=== PATIENT | male | born 1965 | race African-American/Black ===

== ENCOUNTER 2023-07-05 15:11 | Inpatient (IN) | payer OTHER ==
[2023-07-05 16:07] VITALS: BMI 33.2
[2023-07-05 16:54] LABS: BASO % 0.7 % (0-2.0); EOS % 0.3 % (0-4.5); HEMATOCRIT 47.5 % (35.4-49); HEMOGLOBIN 15.4 GM/dL (11.7-16.9); LYMPH % 23.3 % (8-40); MCH 26.7 pg (25.7-33.7); MCHC 32.4 g/dl (32.0-35.9); MEAN CELL VOLUME 82.3 fl (80-96); MEAN PLT VOLUME 9.2 fl (7.5-11.1); MONO % 8.7 % (3.8-10.2); PLATELET COUNT 184 10^3/uL (134-434); RBC 5.76 M/mm3 (4.00-5.60); RDW 14.5 % (11.9-15.9); WHITE BLOOD COUNT 8.7 K/mm3 (4.0-10.0)
[2023-07-05 16:58] LABS: VENOUS BASE EXCESS -10.5 mmol/L (-2-2); VENOUS O2 SATURATION 59.1 % (70-80); VENOUS PCO2 37.3 mmHg (38-52); VENOUS PH 7.248 (7.310-7.410)
[2023-07-05] MEDS: SODIUM CHLORIDE 0.9% 500 ML INFUS.BAG IV ONE (17:16)
[2023-07-05 17:18] LABS: CHLORIDE 95 mmol/L (98-107); POTASSIUM 4.9 mmol/L (3.5-5.1); SODIUM 131 mmol/L (136-145)
[2023-07-05 17:21] LABS: ALBUMIN 3.7 g/dl (3.4-5.0); ANION GAP 19 mmol/L (4-13); BLOOD UREA NITROGEN 30.5 mg/dL (7-18); CALCIUM 9.7 mg/dL (8.5-10.1); CO2 17 mmol/L (21-32); GLUCOSE,RANDOM 394 mg/dL (74-106)
[2023-07-05 17:24] LABS: SGOT/AST 20 U/L (15-37); SGPT/ALT 22 U/L (13-61)
[2023-07-05 17:25] LABS: BILIRUBIN,TOTAL 0.6 mg/dL (0.2-1)
[2023-07-05 17:27] LABS: ALK PHOS 109 U/L (45-117)
[2023-07-05] MEDS: SODIUM CHLORIDE 1,000 ML IV STA (18:05)
[2023-07-05 18:45] LABS: VENOUS O2 SATURATION 45.6 % (70-80); VENOUS PCO2 37.7 mmHg (38-52); VENOUS PH 7.235 (7.310-7.410)
[2023-07-05 18:48] LABS: EPI CELLS 1 /uL (0-25.1); HYALINE CASTS 1 /uL (0-3.1); PH,URINE 5.5 (5.0-8.0); URINE APPEARANCE CLEAR; URINE BACTERIA 2 /uL (0-1359); URINE BILIRUBIN NEGATIVE (NEGATIVE); URINE COLOR YELLOW; URINE GLUCOSE (UA) 3+ (NEGATIVE); URINE KETONE 4+ (NEGATIVE); URINE LEUK ESTERASE NEGATIVE (NEGATIVE); URINE NITRITE NEGATIVE (NEGATIVE); URINE PROTEIN 1+ (NEGATIVE); URINE RBC 9 /uL (0-23.9); URINE UROBILINOGEN 0.2 mg/dL (0.2-1.0); URINE WBC 3 /uL (0-25.8)
[2023-07-05 19:11] LABS: POTASSIUM 4.3 mmol/L (3.5-5.1)
[2023-07-05 19:12] LABS: CALCIUM 9.4 mg/dL (8.5-10.1)
[2023-07-05 19:13] LABS: BLOOD UREA NITROGEN 28.7 mg/dL (7-18)
[2023-07-05 19:16] LABS: CREATININE 2.1 mg/dL (0.55-1.3)
[2023-07-05] MEDS: LACTATED RINGERS SOLUTION 1,000 ML with POTASSIUM CHLORIDE 20 MEQ IV ONE (21:54)
[2023-07-05] MEDS: INSULIN REGULAR 100 UNITS in SODIUM CHLORIDE 99 ML IVPB SCH (21:54)
[2023-07-06 00:40] LABS: VENOUS BASE EXCESS -5.6 mmol/L (-2-2); VENOUS O2 SATURATION 35.8 % (70-80); VENOUS PCO2 45.4 mmHg (38-52); VENOUS PH 7.286 (7.310-7.410)
[2023-07-06 01:00] LABS: POTASSIUM 4.3 mmol/L (3.5-5.1)
[2023-07-06 01:02] LABS: BLOOD UREA NITROGEN 23.5 mg/dL (7-18)
[2023-07-06 01:06] LABS: CREATININE 1.8 mg/dL (0.55-1.3)
[2023-07-06] MEDS: DEXTROSE 5%-0.45% SALINE 1,000 ML IV SCH (01:17)
[2023-07-06] MEDS ORDERED: ACETAMINOPHEN 325 MG TABLET (FP) PO PRN ×3 (03:07→10:56)
[2023-07-06] MEDS ORDERED: ONDANSETRON 4 MG/2 ML VIAL IVPUSH PRN (03:10)
[2023-07-06] MEDS: SODIUM CHLORIDE 1,000 ML IV STA (04:18)
[2023-07-06] MEDS: INSULIN REGULAR 100 UNITS in SODIUM CHLORIDE 99 ML IVPB SCH ×2 (07:13→08:30)
[2023-07-06 08:45] LABS: POTASSIUM 3.6 mmol/L (3.5-5.1)
[2023-07-06 08:46] LABS: CALCIUM 8.5 mg/dL (8.5-10.1)
[2023-07-06 08:47] LABS: BLOOD UREA NITROGEN 20.1 mg/dL (7-18)
[2023-07-06 08:51] LABS: BILIRUBIN,TOTAL 0.5 mg/dL (0.2-1)
[2023-07-06 08:59] LABS: CREATININE 1.4 mg/dL (0.55-1.3)
[2023-07-06] MEDS ORDERED: SODIUM CHLORIDE 1,000 ML IV SCH (09:00)
[2023-07-06 09:04] LABS: TOT PROT 6.9 g/dl (6.4-8.2)
[2023-07-06] MEDS: INSULIN (LEVEMIR) 100 UNITS/ML UNITS SQ SCH (09:22)
[2023-07-06] MEDS: FAMOTIDINE 20 MG TABLET PO SCH (09:53)
[2023-07-06] MEDS: MUPIROCIN 2% TOPICAL OINTMENT FOR DECOLONIZATION NS SCH (09:53)
[2023-07-06] MEDS: HEPARIN NA (PORCINE) 5,000 UNITS/ML 1ML VIAL SQ SCH (09:53)
[2023-07-06] MEDS: DEXTROSE 5%-NORMAL SALINE 1,000 ML IV SCH (10:49)
[2023-07-06] MEDS ORDERED: INSULIN (NOVOLOG) ASPART 100 UNITS/ML 10ML VIAL ONE (10:57)
[2023-07-06] MEDS: INSULIN ASPART SLIDING SCALE (NOVOLOG) 1 VIAL SQ SCH (11:00)
[2023-07-06] MEDS: CHLORHEXIDINE GLUCONATE 4% CLEANSER FOR DECOLONIZATION TP SCH (21:05)
[2023-07-07 06:39] LABS: HEMATOCRIT 40.9 % (35.4-49); HEMOGLOBIN 13.5 GM/dL (11.7-16.9); MCH 26.6 pg (25.7-33.7); MCHC 32.9 g/dl (32.0-35.9); MEAN PLT VOLUME 9.1 fl (7.5-11.1); PLATELET COUNT 123 10^3/uL (134-434); RBC 5.05 M/mm3 (4.00-5.60); RDW 14.2 % (11.9-15.9); WHITE BLOOD COUNT 5.4 K/mm3 (4.0-10.0)
[2023-07-07 07:06] LABS: POTASSIUM 3.9 mmol/L (3.5-5.1)
[2023-07-07 07:11] LABS: CALCIUM 8.9 mg/dL (8.5-10.1)
[2023-07-07 07:12] LABS: BLOOD UREA NITROGEN 15.8 mg/dL (7-18)
[2023-07-07 07:15] LABS: CREATININE 1.4 mg/dL (0.55-1.3); PHOSPHOROUS 3.1 mg/dL (2.5-4.9)
[2023-07-07] MEDS ORDERED: ACETAMINOPHEN 325 MG TABLET (FP) PO PRN (14:26)
[2023-07-07] MEDS: INSULIN ASPART SLIDING SCALE (NOVOLOG) 1 VIAL SQ SCH (17:22)
[2023-07-07] MEDS: INSULIN (LEVEMIR) 100 UNITS/ML UNITS SQ SCH (21:14)
[2023-07-07] MEDS: FAMOTIDINE 20 MG TABLET PO SCH (21:18)
[2023-07-07] MEDS: HEPARIN NA (PORCINE) 5,000 UNITS/ML 1ML VIAL SQ SCH (21:22)
[2023-07-08] MEDS: amLODIPine BESYLATE 5 MG TABLET (FP) PO SCH (09:22)
[2023-07-08 09:56] LABS: BASO % 0.8 % (0-2.0); EOS % 1.1 % (0-4.5); HEMATOCRIT 38.6 % (35.4-49); HEMOGLOBIN 12.8 GM/dL (11.7-16.9); LYMPH % 50.5 % (8-40); MCH 26.7 pg (25.7-33.7); MCHC 33.1 g/dl (32.0-35.9); MEAN CELL VOLUME 80.5 fl (80-96); MEAN PLT VOLUME 9.4 fl (7.5-11.1); MONO % 8.8 % (3.8-10.2); NEUT % 38.8 % (42.8-82.8); PLATELET COUNT 117 10^3/uL (134-434); WHITE BLOOD COUNT 4.3 K/mm3 (4.0-10.0)
[2023-07-08 10:19] LABS: POTASSIUM 3.4 mmol/L (3.5-5.1)
[2023-07-08 10:32] LABS: CALCIUM 8.9 mg/dL (8.5-10.1)
[2023-07-08] MEDS: INSULIN ASPART SLIDING SCALE (NOVOLOG) 1 VIAL SQ SCH (12:21)
[2023-07-08] MEDS: INSULIN (NOVOLOG) ASPART 100 UNITS/ML 10ML VIAL SQ SCH (12:21)
[2023-07-08] MEDS: POTASSIUM CHLORIDE ORAL LIQUID 20 MEQ/15 ML PO ONE (12:29)
[2023-07-09 09:26] LABS: HEMATOCRIT 40.7 % (35.4-49); HEMOGLOBIN 13.3 GM/dL (11.7-16.9); MCH 26.1 pg (25.7-33.7); MCHC 32.6 g/dl (32.0-35.9); MEAN CELL VOLUME 79.9 fl (80-96); MEAN PLT VOLUME 9.2 fl (7.5-11.1); PLATELET COUNT 116 10^3/uL (134-434); RDW 14.2 % (11.9-15.9); WHITE BLOOD COUNT 4.7 K/mm3 (4.0-10.0)
[2023-07-09] MEDS: amLODIPine BESYLATE 10 MG TABLET (FP) PO SCH (09:28)
[2023-07-09 09:47] LABS: POTASSIUM 3.5 mmol/L (3.5-5.1)
[2023-07-09 09:51] LABS: BLOOD UREA NITROGEN 12.8 mg/dL (7-18)
[2023-07-09 09:53] LABS: CREATININE 0.9 mg/dL (0.55-1.3)
[2023-07-09 14:10] VITALS: BP 122/73; PULSE 62; RESP 18; TEMP 97.9
== END 2023-07-09 16:10 | disposition home or self-care (01) | DRG 420 ==
LOC: JER 15:11 → JERBED 07-06 02:58 → JICU 07-06 08:45 → J5S 07-07 14:21
PROVIDERS: ADMIT Internal Medicine; ATTEND Internal Medicine
DX: E11.10 Type 2 diabetes mellitus with ketoacidosis without coma (principal); N17.9 Acute kidney failure, unspecified; I10 Essential (primary) hypertension; E87.6 Hypokalemia; H53.8 Other visual disturbances; R80.9 Proteinuria, unspecified; R42 Dizziness and giddiness; Z91.148 Patient's other noncompliance with medication regimen for other reason
CPT/HCPCS: 0241U-QW; 36415; 71046-TC-FY; 80048; 80053; 80061; 81003; 82010; 82803; 82962; 83036; 83605; 83735; 84100; 85025; 85027; 87086; 93005; 93010; 99285-25; J1644

== ENCOUNTER 2025-03-30 16:04 | Inpatient (IN) | payer OTHER ==
[2025-03-30] MEDS: SODIUM CHLORIDE 0.9% 500 ML INFUS.BAG IV ONE (16:45)
[2025-03-30 17:01] LABS: BG HCT 45.0 % (35.4-49); VENOUS BASE EXCESS -9.1 mmol/L (-2-2); VENOUS O2 SATURATION 39.7 % (70-80); VENOUS PCO2 46.9 mmHg (38-52); VENOUS PH 7.217 (7.310-7.410)
[2025-03-30 17:02] LABS: ABSOLUTE IMMATURE GRANULOCYTES 0.04 x10^3/uL (0.0-0.031); BASOPHILS # 0.03 x10^3/uL (0.01-0.08); EOSINOPHIL % 0.0 % (0.8-7.0); EOSINOPHILS # 0.00 x10^3/uL (0.04-0.54); MCHC 30.3 g/dl (32.3-36.5); MEAN CELL VOLUME 87.2 fl (79.0-92.2); MEAN PLT VOLUME 11.3 fl (9.4-12.4); MONOCYTE # 0.51 x10^3/uL (0.30-0.82); MONOCYTE % 5.7 % (5.3-12.2); RDW 13.9 % (12.2-16.1)
[2025-03-30] MEDS: LACTATED RINGERS SOLUTION 1000 ML INFUS.BAG IV ONE (17:05)
[2025-03-30 17:34] LABS: GLUCOSE,RANDOM 685 mg/dL (74-106); TOT PROT 7.6 g/dl (6.4-8.2)
[2025-03-30 17:35] LABS: CO2 19 mmol/L (21-32)
[2025-03-30 17:37] LABS: ALK PHOS 140 U/L (40-150)
[2025-03-30 17:40] LABS: CREATININE 1.49 mg/dL (0.55-1.3); SGOT/AST 31 U/L (5-34); SGPT/ALT 36 U/L (0-55)
[2025-03-30] MEDS ORDERED: INSULIN REGULAR 100 UNITS in SODIUM CHLORIDE 99 ML IVPB SCH (18:15)
[2025-03-30] MEDS ORDERED: INSULIN REGULAR HUMAN 100 UNITS/ML *VIAL ONE (18:20)
[2025-03-30] MEDS: INSULIN REGULAR 100 UNITS in SODIUM CHLORIDE 99 ML IVPB SCH ×3 (18:43→21:55)
[2025-03-30] MEDS: INSULIN REGULAR HUMAN 100 UNITS/ML *VIAL IVPUSH ONE (18:43)
[2025-03-30 18:55] LABS: URINE APPEARANCE CLEAR; URINE BILIRUBIN NEGATIVE (NEGATIVE); URINE COLOR YELLOW; URINE GLUCOSE (UA) 3+ (NEGATIVE); URINE KETONE 4+ (NEGATIVE); URINE LEUK ESTERASE NEGATIVE (NEGATIVE); URINE NITRITE NEGATIVE (NEGATIVE); URINE PROTEIN NEGATIVE (NEGATIVE); URINE UROBILINOGEN 0.2 mg/dL (0.2-1.0)
[2025-03-30 20:27] LABS: BG HCT 44.0 % (35.4-49); VENOUS BASE EXCESS -9.9 mmol/L (-2-2); VENOUS O2 SATURATION 72.5 % (70-80); VENOUS PCO2 37.6 mmHg (38-52); VENOUS PH 7.258 (7.310-7.410)
[2025-03-30 20:47] LABS: GLUCOSE,RANDOM 455 mg/dL (74-106)
[2025-03-30 20:48] LABS: TOT PROT 7.6 g/dl (6.4-8.2)
[2025-03-30 20:49] LABS: CO2 17 mmol/L (21-32)
[2025-03-30] MEDS ORDERED: ACETAMINOPHEN 325 MG TABLET (FP) PO PRN (20:49)
[2025-03-30 20:50] LABS: ALK PHOS 124 U/L (40-150)
[2025-03-30 20:53] LABS: CREATININE 1.17 mg/dL (0.55-1.3); SGOT/AST 33 U/L (5-34); SGPT/ALT 36 U/L (0-55)
[2025-03-30] MEDS ORDERED: DEXTROSE 50%-WATER 25 GM/50 ML DISP.SYRIN IVPUSH PRN (20:57)
[2025-03-30] MEDS: SODIUM CHLORIDE 0.45% 1,000 ML IV SCH (21:54)
[2025-03-30] MEDS: HEPARIN NA (PORCINE) 5,000 UNITS/ML 1ML VIAL SQ SCH (21:54)
[2025-03-30] MEDS: MUPIROCIN 2% TOPICAL OINTMENT FOR DECOLONIZATION NS SCH (21:54)
[2025-03-30] MEDS: CHLORHEXIDINE GLUCONATE 4% CLEANSER FOR DECOLONIZATION TP SCH (21:56)
[2025-03-31 01:23] LABS: GLUCOSE,RANDOM 267.0 mg/dL (74-106)
[2025-03-31 01:24] LABS: CO2 24.0 mmol/L (21-32)
[2025-03-31 01:28] LABS: CREATININE 1.02 mg/dL (0.55-1.3)
[2025-03-31] MEDS: DEXTROSE 5%-0.45% SALINE 1,000 ML IV SCH (02:12)
[2025-03-31 07:11] LABS: MCHC 31.3 g/dl (32.3-36.5); MEAN CELL VOLUME 84.2 fl (79.0-92.2); MEAN PLT VOLUME 11.1 fl (9.4-12.4); RDW 14.0 % (12.2-16.1)
[2025-03-31 07:35] LABS: GLUCOSE,RANDOM 168.0 mg/dL (74-106); TOT PROT 7.2 g/dl (6.4-8.2)
[2025-03-31 07:36] LABS: CO2 28.0 mmol/L (21-32)
[2025-03-31 07:38] LABS: ALK PHOS 92.0 U/L (40-150)
[2025-03-31 07:41] LABS: CREATININE 0.87 mg/dL (0.55-1.3); SGOT/AST 24.0 U/L (5-34); SGPT/ALT 30.0 U/L (0-55)
[2025-03-31] MEDS: INSULIN ASPART SLIDING SCALE (NOVOLOG) 1 VIAL SQ SCH ×3 (09:14→21:18)
[2025-03-31] MEDS: INSULIN GLARGINE (LANTUS) 100 UNITS/ML UNITS SQ SCH (09:14)
[2025-03-31 11:46] LABS: GLUCOSE,RANDOM 346.0 mg/dL (74-106)
[2025-03-31 11:48] LABS: CO2 29.0 mmol/L (21-32)
[2025-03-31] MEDS: SODIUM CHLORIDE 0.45% 1,000 ML IV SCH ×2 (11:49→20:39)
[2025-03-31 11:52] LABS: CREATININE 0.83 mg/dL (0.55-1.3)
[2025-03-31 14:15] VITALS: BMI 28.0
[2025-03-31] MEDS: LACTATED RINGERS SOLUTION 1000 ML INFUS.BAG IV ONE ×2 (14:42→17:12)
[2025-03-31] MEDS ORDERED: ACETAMINOPHEN 325 MG TABLET (FP) PO PRN (20:03)
[2025-03-31] MEDS: HEPARIN NA (PORCINE) 5,000 UNITS/ML 1ML VIAL SQ SCH (21:18)
[2025-03-31] MEDS ORDERED: CHLORHEXIDINE GLUCONATE 4% CLEANSER FOR DECOLONIZATION TP SCH (22:00)
[2025-03-31] MEDS ORDERED: MUPIROCIN 2% TOPICAL OINTMENT FOR DECOLONIZATION NS SCH (22:00)
[2025-04-01] MEDS: INSULIN GLARGINE (LANTUS) 100 UNITS/ML UNITS SQ SCH (06:07)
[2025-04-01 07:40] LABS: RDW 13.6 % (12.2-16.1)
[2025-04-01 07:42] LABS: IMMATURE PLATELET FRACTION # 6.60 x10^3/uL; MCHC 31.4 g/dl (32.3-36.5); MEAN CELL VOLUME 84.4 fl (79.0-92.2); MEAN PLT VOLUME 11.2 fl (9.4-12.4)
[2025-04-01 08:43] LABS: GLUCOSE,RANDOM 349.0 mg/dL (74-106)
[2025-04-01 08:44] LABS: CO2 26.0 mmol/L (21-32)
[2025-04-01 08:48] LABS: CREATININE 0.77 mg/dL (0.55-1.3)
[2025-04-01] MEDS: INSULIN (NOVOLOG) ASPART 100 UNITS/ML 10ML VIAL SQ SCH (12:05)
[2025-04-01] MEDS: MAGNESIUM 2GM/50ML STERILE WATER IVPB IVPB ONE (12:11)
[2025-04-02 08:28] LABS: ABSOLUTE IMMATURE GRANULOCYTES 0.01 x10^3/uL (0.0-0.031); MEAN PLT VOLUME 12.0 fl (9.4-12.4)
[2025-04-02 08:31] LABS: BASOPHILS # 0.02 x10^3/uL (0.01-0.08); EOSINOPHIL % 0.0 % (0.8-7.0); EOSINOPHILS # 0.00 x10^3/uL (0.04-0.54); IMMATURE PLATELET FRACTION # 8.40 x10^3/uL; MCHC 31.3 g/dl (32.3-36.5); MEAN CELL VOLUME 84.8 fl (79.0-92.2); MONOCYTE # 0.30 x10^3/uL (0.30-0.82); MONOCYTE % 5.7 % (5.3-12.2); RDW 13.3 % (12.2-16.1)
[2025-04-02 09:06] LABS: GLUCOSE,RANDOM 302.0 mg/dL (74-106); TOT PROT 6.3 g/dl (6.4-8.2)
[2025-04-02 09:07] LABS: CO2 31.0 mmol/L (21-32)
[2025-04-02 09:09] LABS: ALK PHOS 76.0 U/L (40-150)
[2025-04-02 09:12] LABS: CREATININE 0.71 mg/dL (0.55-1.3); SGOT/AST 21.0 U/L (5-34); SGPT/ALT 18.0 U/L (0-55)
[2025-04-03] MEDS: INSULIN GLARGINE (LANTUS) 100 UNITS/ML UNITS SQ SCH (06:06)
[2025-04-03] MEDS ORDERED: INSULIN ASPART SLIDING SCALE (NOVOLOG) 1 VIAL SQ ONE (06:11)
[2025-04-03 07:31] VITALS: BP 132/76; RESP 18
[2025-04-03 08:34] LABS: ABSOLUTE IMMATURE GRANULOCYTES 0.01 x10^3/uL (0.0-0.031); BASOPHILS # 0.02 x10^3/uL (0.01-0.08); EOSINOPHIL % 0.8 % (0.8-7.0); EOSINOPHILS # 0.04 x10^3/uL (0.04-0.54)
[2025-04-03 08:36] LABS: IMMATURE PLATELET FRACTION # 8.60 x10^3/uL; MCHC 32.1 g/dl (32.3-36.5); MEAN CELL VOLUME 83.0 fl (79.0-92.2); MEAN PLT VOLUME 11.3 fl (9.4-12.4); MONOCYTE # 0.34 x10^3/uL (0.30-0.82); MONOCYTE % 6.7 % (5.3-12.2); RDW 13.2 % (12.2-16.1)
[2025-04-03 09:09] LABS: GLUCOSE,RANDOM 176.0 mg/dL (74-106)
[2025-04-03 09:10] LABS: TOT PROT 6.1 g/dl (6.4-8.2)
[2025-04-03 09:11] LABS: CO2 27.0 mmol/L (21-32)
[2025-04-03 09:12] LABS: ALK PHOS 67.0 U/L (40-150)
[2025-04-03 09:15] LABS: SGOT/AST 19.0 U/L (5-34); SGPT/ALT 15.0 U/L (0-55)
[2025-04-03 11:10] LABS: CREATININE 0.69 mg/dL (0.55-1.3)
[2025-04-03 16:18] VITALS: PULSE 65; TEMP 98.5
== END 2025-04-03 18:53 | disposition home or self-care (01) | DRG 420 ==
LOC: JER 16:04 → JERBED 19:56 → JICU 20:30 → J7W 03-31 18:56
PROVIDERS: ADMIT Internal Medicine Pulmonary Disease; ATTEND Internal Medicine
DX: E11.10 Type 2 diabetes mellitus with ketoacidosis without coma (principal); E11.40 Type 2 diabetes mellitus with diabetic neuropathy, unspecified; I10 Essential (primary) hypertension; R42 Dizziness and giddiness; Z79.4 Long term (current) use of insulin; W18.30XA Fall on same level, unspecified, initial encounter; Y93.9 Activity, unspecified; Y92.009 Unspecified place in unspecified non-institutional (private) residence as the place of occurrence of the external cause; Y99.9 Unspecified external cause status
CPT/HCPCS: 36415; 70450-TC; 71045-TC-FY; 80048; 80053; 81003; 82010; 82150; 82803; 82962; 83036; 83605; 83690; 83735; 83930; 84100; 84484; 85025; 85027; 86850; 86900; 86901; 87086; 87637-QW; 93005; 93010; 99285-25